=== PATIENT | male | born 1950 | race Caucasian/White ===

== ENCOUNTER → 2023-10-01 | Outpatient (CLI) | payer MEDICARE, SELFPAY ==
[2023-10-01 15:32] LABS: Pathologist Comment May follow
[2023-10-01 18:38] LABS: AUTO B FLUID DILUENT BKGD CT WBC <0.1 RBC <0.01 (W<.1,R<.01)
[2023-10-01 18:39] LABS: Appearance /Synovial Fluid Cloudy (CLEAR); CRYSTALS, BODY FLUID See PATH REV; Color / Synovial Fluid Yellow (Pale Yellow); Source / Synovial Fluid NG; Source- Body Fluid SYNOVIAL
[2023-10-01 18:40] LABS: RBC /Synovial Fluid 0.006 10^6/uL (0); Synovial Fld Polynuclear WBC % 76.5 %
[2023-10-01 18:41] LABS: Synovial Fld Mononuclear WBC % 23.5 %; Synovial Fld Polynuclear WBC # 8.475 10^3/uL
[2023-10-01 18:42] LABS: Body Fluid QC Type(s) BF1Q,BF2Q
[2023-10-01 20:11] LABS: Lymph 2 %; Monocyte /Synovial Fluid 8 %; Neutrophil 90 % (0-25)
[2023-10-02 12:49] LABS: Pathologist Review Reviewed
== END | disposition home or self-care (01) ==
LOC: LABSPEC 15:26
PROVIDERS: Referring Provider Physician Assistant; Visit Provider Physician Assistant
DX: M70.42 Prepatellar bursitis, left knee (principal); M25.562 Pain in left knee
CPT/HCPCS: 87070; 87075; 87205; 89050; 89051; 89060